=== PATIENT | male | born 1960 | race Caucasian/White ===

== ENCOUNTER 2023-09-21 23:00 | Emergency (ER) | payer MEDICARE, MEDICAID ==
[~2023-09-21] VITALS: Ht 170.2 cm; Wt 77.1 kg
[~2023-09-21 23:00] MED LIST: ESCI20TA PO; GABA-531 PO; HYDR25TA4 PO; LYR25 PO; OMEP20CA15 PO; PRAM0.5T3 PO; SYN50 PO
[2023-09-21 23:20] VITALS: BP_SYST 110; PULSE 65; RESP 19; TEMP 96.6; O2SAT 96
[2023-09-22 00:09] LABS: BILIRUBIN,URINE NEGATIVE (NEGATIVE); BLOOD, URINE 1+ (NEGATIVE); CLARITY/URINE CLEAR (CLEAR); COLOR,URINE YELLOW (YELLOW); GLUCOSE,URINE 3+ (NEGATIVE); KETONES,URINE NEGATIVE (NEGATIVE); LEUKOCYTE ESTERASE ,URINE NEGATIVE (NEGATIVE); NITRITE, URINE NEGATIVE (NEGATIVE); PROTEIN URINE NEGATIVE (NEGATIVE); UROBILINOGEN,URINE 0.2 (0.2-1.0)
[2023-09-22 00:46] LABS: BACTERIA,URINE RARE /HPF (None Seen)
[2023-09-22] MEDS ORDERED: ZAN4 PO (01:36)
[2023-09-22] MEDS ORDERED: IBUP-1969 PO (01:36)
[2023-09-22] MEDS: IBUPROFEN 600 MG TABLET PO ONE (01:44)
[2023-09-22 02:11] VITALS: BP_SYST 108; PULSE 71; RESP 18; TEMP 97.6; O2SAT 95
== END 2023-09-22 02:12 | disposition home or self-care (01) ==
LOC: SED 23:00
DX: M54.16 Radiculopathy, lumbar region (principal); E11.9 Type 2 diabetes mellitus without complications; I10 Essential (primary) hypertension; Z79.899 Other long term (current) drug therapy
CPT/HCPCS: 72131; 81000; 81001; 81015; 99284